=== PATIENT | male | born 1950 | race Caucasian/White ===

== ENCOUNTER 2019-12-21 06:13 | Day surgery (SDC) | payer MEDICARE, BC ==
[2019-12-21] VITALS (12 sets, daily range): BP systolic 140–176; BP diastolic 71–101
[~2019-12-21] VITALS: Ht 182.9 cm; Wt 123.6 kg
[~2019-12-21 06:13] MED LIST: ALLO100T PO; ATOR40TA71 PO; FURO40TA4 PO; LANT1000 PO; METO100T7 PO; NEPHC PO
[2019-12-21] MEDS ORDERED: APIX2.5T PO (06:39)
[2019-12-21 07:39] LABS: BASOPHILS % (AUTO) 0.6 % (0-1); EOSINOPHILS # (AUTO) 0.1 X10'3 (0-0.9); EOSINOPHILS % (AUTO) 1.8 % (0-6); HEMOGLOBIN 11.2 g/dl (14.0-17.9); LYMPHOCYTES # (AUTO) 0.9 X10'3 (1.1-4.8); LYMPHOCYTES % (AUTO) 11.9 % (21-51); MEAN CORPUSCULAR HEMOGLOBIN 35.1 PG (27.0-31.0); MEAN CORPUSCULAR VOLUME 106.2 FL (78-98); MEAN PLATELET VOLUME 9.2 FL (7.4-10.4); MONOCYTES # (AUTO) 0.8 X10'3 (0-0.9); MONOCYTES % (AUTO) 10.5 % (2-12); NEUTROPHILS # (AUTO) 5.5 X10'3 (1.8-7.7); NEUTROPHILS % (AUTO) 75.2 % (42-75); PLATELET COUNT 260 X10'3 (140-440); RED CELL DISTRIBUTION WIDTH 15.3 % (11.5-14.5); WHITE BLOOD COUNT 7.3 X10'3 (4.5-11.0)
[2019-12-21] MEDS ORDERED: normal saline 1000ml 1,000 ML IV SCH (07:40)
[2019-12-21 08:12] LABS: ANION GAP 8 (8-16); BLOOD UREA NITROGEN 70 MG/DL (7-18); BUN/CREATININE RATIO 4.9 (5.4-32.0); CALCIUM 9.1 MG/DL (8.5-10.1); CHLORIDE 98 MMOL/L (99-107); CREATININE 14.34 MG/DL (0.60-1.10); GLUCOSE 100 MG/DL (70-104); POTASSIUM 5.7 MMOL/L (3.5-5.1); SODIUM 137 MMOL/L (135-145); TOTAL CARBON DIOXIDE 30.8 MMOL/L (24-32); eGFR 3 ML/MIN
[2019-12-21] MEDS ORDERED: tPA-cathflo 2 MG/2 ml IV flush ONE ×2 (08:23→14:23)
[2019-12-21] MEDS ORDERED: iohexol 300mg/ml 100ml inj. ONE ×2 (08:29→15:02)
[2019-12-21] MEDS ORDERED: heparin 1,000 UNITS/NS 500ml 500 ML ONE ×2 (08:29→15:19)
--- NOTE | 2019-12-21 08:45 | NUR ---
Raúl CAMACHO at bedside, new orders given.
[2019-12-21] MEDS ORDERED: ceFAZolin 2gm in dextrose, iso 50 ML IV ONE (08:50)
--- NOTE | 2019-12-21 09:27 | NUR ---
IV antibiotic finished infusing, Angio nurses Yas BATRES and Jazmine RN at bedside.
--- NOTE | 2019-12-21 09:44 | NUR ---
MD at bedside, order to monitor patient for one hour. Pt vs stable as charted. Will continue to monitor.
--- NOTE | 2019-12-21 10:45 | NUR ---
Pt resting comfortably, no s/s of bleeding from left arm fistula. Pt appears to be resting comfortable. Eyes closed, even respirations. Will continue to monitor.
[2019-12-21] MEDS ORDERED: midazolam 2 mg/2 ml injection ONE ×3 (13:31→14:40)
[2019-12-21] MEDS ORDERED: fentaNYL/PF 50MCG/1 ML 2ML syringe ONE ×4 (13:31→15:41)
[2019-12-21] MEDS ORDERED: LIDOcaine 1%/PF 5ML 10 MG/ML VIAL ONE ×2 (13:31→16:35)
--- NOTE | 2019-12-21 13:40 | NUR ---
Pt left floor for procedure.
[2019-12-21] MEDS ORDERED: heparin 1,000unit/ml 10ml vial 10 ML ONE ×2 (14:16→16:35)
--- NOTE | 2019-12-21 15:31 | NUR ---
Problems reprioritized. Patient report given, questions answered & plan of care reviewed with Kady BATRES.
== END 2019-12-21 18:13 | disposition home or self-care (01) ==
LOC: SSTAY O 06:13
PROVIDERS: ATTEND Radiology Vascular & Interventional Radiology
DX: T82.868A Thrombosis due to vascular prosthetic devices, implants and grafts, initial encounter (principal); N18.6 End stage renal disease; Z79.01 Long term (current) use of anticoagulants; Z79.899 Other long term (current) drug therapy; Z99.2 Dependence on renal dialysis; Y83.2 Surgical operation with anastomosis, bypass or graft as the cause of abnormal reaction of the patient, or of later complication, without mention of misadventure at the time of the procedure; Y92.89 Other specified places as the place of occurrence of the external cause; Z83.6 Family history of other diseases of the respiratory system; Z82.71 Family history of polycystic kidney
CPT/HCPCS: 36415; 36558; 36905; 76937; 77001; 80048; 85025; 99152; 99153; C1725; C1750; C1769; C1894; J1644; J2250; J2997; J3010; J7030; Q9967; A9270

== ENCOUNTER 2020-03-01 08:03 | Day surgery (SDC) | payer MEDICARE, BC ==
[~2020-03-01] VITALS: Ht 182.9 cm; Wt 128.7 kg
[~2020-03-01 08:03] MED LIST changes: +APIX2.5T PO; -FURO40TA4 PO
[2020-03-01] MEDS ORDERED: normal saline 1000ml 1,000 ML IV PRN (08:40)
[2020-03-01] MEDS ORDERED: VARE0.5T PO (08:43)
[2020-03-01] MEDS ORDERED: APIX5TAB3 PO (08:43)
[2020-03-01 09:22] VITALS: BP 122/72
[2020-03-01] MEDS ORDERED: fentaNYL/PF 50MCG/1 ML 2ML syringe ONE (10:10)
[2020-03-01] MEDS ORDERED: LIDOcaine 1%/PF 5ML 10 MG/ML VIAL ONE (10:10)
[2020-03-01] MEDS ORDERED: heparin 1,000unit/ml 10ml vial 10 ML ONE (10:10)
[2020-03-01] MEDS ORDERED: midazolam 2 mg/2 ml injection ONE (10:10)
[2020-03-01 10:45] VITALS: BP 143/80
[2020-03-01 11:00] VITALS: BP 134/94
== END 2020-03-01 11:15 | disposition home or self-care (01) ==
LOC: SSTAY O 08:03
PROVIDERS: ATTEND Radiology Diagnostic Radiology
DX: T82.49XA Other complication of vascular dialysis catheter, initial encounter (principal); Z79.01 Long term (current) use of anticoagulants; Z79.899 Other long term (current) drug therapy; Z84.1 Family history of disorders of kidney and ureter; Z83.6 Family history of other diseases of the respiratory system; Y83.8 Other surgical procedures as the cause of abnormal reaction of the patient, or of later complication, without mention of misadventure at the time of the procedure; Y92.89 Other specified places as the place of occurrence of the external cause
CPT/HCPCS: 36581; 77001; C1750; C1769; J1644; J2250; J3010; A9270

== ENCOUNTER 2021-03-28 06:15 | Day surgery (SDC) | payer MEDICARE, BC ==
[~2021-03-28] VITALS: Ht 182.9 cm; Wt 127.8 kg
[2021-03-28] VITALS (9 sets, daily range): BP systolic 131–160; BP diastolic 72–82
[~2021-03-28 06:15] MED LIST changes: -APIX2.5T PO; +APIX5TAB3 PO; -LANT1000 PO; -NEPHC PO; +VARE0.5T PO
[2021-03-28] MEDS ORDERED: normal saline 1000ml 1,000 ML IV SCH (06:35)
[2021-03-28] MEDS ORDERED: LANT10005 PO (07:11)
[2021-03-28] MEDS ORDERED: OFLO5DRO5 RIGHT EAR (07:11)
[2021-03-28] MEDS ORDERED: LIDOcaine 1% 30ml preserv. free vial ONE (08:12)
[2021-03-28] MEDS ORDERED: midazolam 1 mg/ML 2ml injection ONE (08:13)
[2021-03-28] MEDS ORDERED: iohexol 300mg/ml 100ml inj. ONE (08:13)
[2021-03-28] MEDS ORDERED: heparin 1,000 UNITS/NS 500ml 500 ML ONE (08:13)
[2021-03-28] MEDS ORDERED: fentaNYL/PF 50MCG/1 ML 2ML syringe ONE (08:13)
[2021-03-28] MEDS ORDERED: tPA-cathflo 2 MG/2 ml IV flush ONE ×2 (08:55→09:09)
--- NOTE | 2021-03-28 10:00 | NUR ---
Phoned pt brother Oswaldo to notify of approx DC time, message left on cell phone.
--- NOTE | 2021-03-28 10:25 | NUR ---
Pt with oozing from lower dressing site, light pressure held, called [facility] lab spoke to Robin re oozing and having [facility] come up to re-dress site. Robin said to change dressing using 4x4 and tegaderm. Supplies gathered. Old dressing removed, no further oozing noted area cleaned with maxi swab and 4x4 gauze and tegaderm applied. Will continue to monitor.
--- NOTE | 2021-03-28 11:00 | NUR ---
Attempted to phone brother Oswaldo again to notify him of pt DC time, no answer, left message on cell phone. Updated pt of inability to get ahold of his brother and that I will continue to try both phone numbers provided by pt.
--- NOTE | 2021-03-28 11:30 | NUR ---
Attempted again to reach Oswaldo. No answer. Notified pt. Will continue to try to reach Oswaldo.
--- NOTE | 2021-03-28 12:00 | NUR ---
Pt asked to get dressed and sit on side of bed while waiting for Oswaldo. PIV DC cath intact. Pt able to get dressed by himself, steady on feet. I walked out to [facility] and front parking lot in an attempt to locate Oswaldo. Pt gave description of car and Oswaldo. I was able to locate Oswaldo in the parking lot. Returned to pt bedside to notify him Oswaldo was in parking lot waiting for him. DC instructions given to pt with verbalization of understanding, questions answered. Transfered pt to private car via with all belongings including blue cane.
== END 2021-03-28 12:00 | disposition home or self-care (01) ==
LOC: SSTAY O 06:15
PROVIDERS: ATTEND Radiology Vascular & Interventional Radiology
DX: T82.868A Thrombosis due to vascular prosthetic devices, implants and grafts, initial encounter (principal); N18.6 End stage renal disease; Z79.01 Long term (current) use of anticoagulants; Z79.899 Other long term (current) drug therapy; Z83.6 Family history of other diseases of the respiratory system; Z84.1 Family history of disorders of kidney and ureter; Y83.2 Surgical operation with anastomosis, bypass or graft as the cause of abnormal reaction of the patient, or of later complication, without mention of misadventure at the time of the procedure; Y92.89 Other specified places as the place of occurrence of the external cause
CPT/HCPCS: 36415; 36905; 85610; 99152; 99153; C1725; C1769; C1894; J1644; J2250; J2997; J3010; J3490; J7030; Q9967